=== PATIENT | male | born 1955 | race Caucasian/White ===

== ENCOUNTER 2017-07-22 01:21 | Emergency (ER) | payer SELFPAY ==
[2017-07-22] MEDS ORDERED: Lidocaine 1% 20 ML MDV ONE (01:28)
[2017-07-22 02:03] LABS: INR-International Normal Ratio 1.1; PTT 24.5 SEC (22.9-36.1); Prothrombin Time 13.8 SEC (12.0-14.7)
[2017-07-22 02:05] LABS: #Basophils 0.2 thou/uL (0.0-0.2); #Eosinphils 0.3 thou/uL (0.0-0.7); #Lymphocytes 2.9 thou/uL (1.20-3.40); #Monocytes 0.6 thou/uL (0.11-0.59); #Neutrophils 8.4 thou/uL (1.40-6.50); %Basophils 1.5 % (0.0-1.0); %Eosinophils 2.5 % (0.0-10.0); %Lymphocytes 23.7 % (21.0-51.0); %Monocytes 4.5 % (0.0-10.0); %Neutrophils 67.8 % (42.0-75.0); Hemoglobin 14.1 g/dL (14.0-18.0); MDiff Complete? YES; Mean Corpuscular HGB CONC 33.3 g/dL (32.0-36.0); Mean Corpuscular Hemoglobin 35.6 pg (27.0-31.0); Mean Platelet Volume 6.8 fL (7.4-10.4); Platelet Count 249 thou/uL (130-400); RBC Distribution Width 11.7 % (11.5-14.5); Red Blood Cell (RBC) Count 3.95 mill/uL (4.70-6.10); White Blood Cell (WBC) Count 12.3 thou/uL (4.8-10.8)
[2017-07-22 02:06] LABS: Macrocytosis SLIGHT = 6-15 cells (100X) (0-5/hpf); PLT Morphology Comment Appears Adequate; RBC Morphology ABNORMAL; Target Cells SLIGHT = 2-5 cells (100X) (0-1/hpf)
[2017-07-22 02:09] LABS: ALT (SGPT) 27 U/L (8-55); AST (SGOT) 38 U/L (5-34); Albumin 4.1 g/dL (3.4-4.8); Alcohol 282 mg/dL (Less than 10); Alkaline Phosphatase 63 U/L (40-150); Anion Gap 17 mmol/L (10-20); Bilirubin, Total Less than 0.3 mg/dL (0.2-1.2); Calc. Creatinine Clearance 0 mL/min (70-130); Carbon Dioxide 26 mmol/L (23-31); Chloride 109 mmol/L (98-107); Estimated GFR-MDRD 80; Globulin 2.8 g/dL (2.4-3.5); Glucose 90 mg/dL (80-115); Potassium 4.7 mmol/L (3.5-5.1); Protein, Total 6.9 g/dL (5.8-8.1); Sodium 147 mmol/L (136-145)
[2017-07-22 02:10] LABS: Calcium 8.4 mg/dL (7.8-10.44)
[2017-07-22 02:11] LABS: BUN (Urea Nitrogen) 11 mg/dL (8.4-25.7)
[2017-07-22] MEDS ORDERED: Ibuprofen 100 MG/5 ML UDCUP ONE (02:47)
[2017-07-22] MEDS ORDERED: Lorazepam 2 MG/ML VIAL ONE (02:49)
[2017-07-22] MEDS ORDERED: Adacel (T-DAP) 0.5 ML VIAL ONE (05:31)
[2017-07-22] MEDS ORDERED: Acetaminophen 325 MG TAB ONE (06:04)
[2017-07-22] MEDS ORDERED: Dextrose 5 % And 0.9 % NaCl 1000 ml Bag ONE (07:15)
[2017-07-22] MEDS ORDERED: Sodium Chloride Irrig Solution 250 ML BOT ONE (07:15)
--- NOTE | 2017-07-22 08:20 | CT ---
PRELIMINARY REPORT/[facility]/EMERGENCY AFTER HOURS PROCEDURE: EXAM: CT Head Without Intravenous Contrast CLINICAL HISTORY: 62 years old, male; Injury or trauma; Injury Pt passed out. Lac to lt eyebrow; Initial encounter; Co ncussion / head injury; Consciousness not specified; Injury date: 07-21-17; Patient HX: Pt passed ou t lac. To lt eyebrow TECHNIQUE: Axial computed tomography images of the head/brain without intravenous contrast. All CT scans at [facility] facility use one or more dose reduction techniques, viz.: automated exposure control; ma/kV adjust ment per patient size (including targeted exams where dose is matched to indication; i.e. head); or iterative reconstruction technique. COMPARISON: No relevant prior studies available. FINDINGS: No definite acute skull fracture. Moderate ethmoid sinus opacity/fluid. Mild mucosal thickening in maxillary sinuses. Included paranasal sinuses otherwise appear essentially clear. No acute intracranial hemorrhage or mass effect. Ventricle size is normal for age. No definite acute infarct by CT. IMPRESSION: No acute intracranial hemorrhage or mass effect. Paranasal sinus findings as discussed above. Thank you for allowing us to participate in the care of your patient. Dictated and Authenticated by: Rashaun Velez MD 07/22/2017 2:34 AM Central Time ([place] \T\ [place]) FINAL REPORT EMERGENT AFTER HOURS CT OF BRAIN WITHOUT CONTRAST: FINDINGS/IMPRESSION: I agree with the findings and impression given in the preliminary report per [facility] physician. No ev idence of acute intracranial abnormality. POS: [facility]
== END 2017-07-22 06:19 | disposition home or self-care (01) ==
LOC: MADERS 01:21
DX: S01.112A Laceration without foreign body of left eyelid and periocular area, initial encounter (principal); S01.81XA Laceration without foreign body of other part of head, initial encounter; F10.129 Alcohol abuse with intoxication, unspecified; J44.9 Chronic obstructive pulmonary disease, unspecified; F17.210 Nicotine dependence, cigarettes, uncomplicated; W19.XXXA Unspecified fall, initial encounter; Y90.8 Blood alcohol level of 240 mg/100 ml or more
CPT/HCPCS: 12013; 36415; 70450; 80053; 80307; 85025; 85610; 85730; 90471; 90715; 93005; 96361; 96374; J2001; J2060; J7042

== ENCOUNTER 2017-07-27 12:04 | Emergency (ER) | payer SELFPAY | END 2017-07-27 12:48 | disposition home or self-care (01) | LOC: MADERS 12:04 | DX: S01.81XD Laceration without foreign body of other part of head, subsequent encounter (principal); J44.9 Chronic obstructive pulmonary disease, unspecified; F17.210 Nicotine dependence, cigarettes, uncomplicated; Z87.442 Personal history of urinary calculi; W19.XXXD Unspecified fall, subsequent encounter ==

== ENCOUNTER 2017-08-09 09:20 | Emergency (ER) | payer SELFPAY ==
[~2017-08-09 09:20] MED LIST: Sodium Chloride 0.9% 1,000 ML BAG ONE; Sodium Chloride 0.9% 100 ML BAG ONE
--- NOTE | 2017-08-09 10:24 | RAD ---
FRONTAL RADIOGRAPH CHEST: 08/09/2017 HISTORY: Alcohol withdrawal. COMPARISON: None. FINDINGS: There are increased linear interstitial densities with pulmonary hyperinflation. Question a history of COPD. No pneumothorax, pleural effusion, lobar consolidation, or alveolar edema. IMPRESSION: Diffuse interstitial prominence with pulmonary hyperinflation, as detailed above. POS: [facility]
[2017-08-09 10:37] LABS: Bilirubin Negative (Negative); Blood, Urine Trace (Negative); Glucose, Urine (Dipstick) Negative (Negative); Leukocyte Negative (Negative); Nitrite Negative (Negative); Protein, Urine (Dipstick) 30 mg/dL (Neg-Trace); Specific Gravity, Urine 1.015 (1.005-1.030)
[2017-08-09 10:38] LABS: Clarity Hazy (Clear)
[2017-08-09 10:39] LABS: Bacteria/HPF Rare-Few HPF (None Seen); RBC/HPF 0-3 HPF (0-3); Squamous Epithelial 0-3 HPF (0-3); WBC/HPF 0-3 HPF (0-3)
[2017-08-09 10:47] LABS: ALT (SGPT) 97 U/L (8-55); Albumin 4.5 g/dL (3.4-4.8); Alkaline Phosphatase 72 U/L (40-150); Anion Gap 22 mmol/L (10-20); BUN (Urea Nitrogen) 14 mg/dL (8.4-25.7); Bilirubin, Total 1.6 mg/dL (0.2-1.2); CK (CPK) 302 U/L (30-200); Calc. Creatinine Clearance 0 mL/min (70-130); Calcium 10.1 mg/dL (7.8-10.44); Carbon Dioxide 19 mmol/L (23-31); Chloride 99 mmol/L (98-107); Estimated GFR-MDRD Greater than 90; Globulin 3.2 g/dL (2.4-3.5); Glucose 119 mg/dL (80-115); Lipase 44 U/L (8-78); Potassium 4.5 mmol/L (3.5-5.1); Protein, Total 7.7 g/dL (5.8-8.1); Sodium 135 mmol/L (136-145)
[2017-08-09 10:51] LABS: AST (SGOT) 109 U/L (5-34)
[2017-08-09] MEDS ORDERED: Lorazepam 2 MG/ML VIAL ONE (10:52)
[2017-08-09] MEDS ORDERED: Thiamine HCl 200 MG/2 ML VIAL ONE (11:10)
[2017-08-09] MEDS ORDERED: Ketorolac Tromethamine 30 MG/ML VIAL ONE (11:18)
[2017-08-09] MEDS ORDERED: Ondansetron HCl/PF 4 MG/2 ML Vial ONE (11:18)
== END 2017-08-09 12:30 | disposition home or self-care (01) ==
LOC: MADERS 09:20
DX: F10.239 Alcohol dependence with withdrawal, unspecified (principal); J44.9 Chronic obstructive pulmonary disease, unspecified; F17.210 Nicotine dependence, cigarettes, uncomplicated
CPT/HCPCS: 71010; 80053; 81001; 82150; 82550; 83690; 87086; 96361; 96374; 96375; J1885; J2060; J2405; J3411; J7050

== ENCOUNTER 2017-09-07 17:17 | Emergency (ER) | payer SELFPAY ==
[~2017-09-07 17:17] MED LIST changes: +Dextrose 5 %-0.45 % NaCl 1000 ml Bag ONE; -Sodium Chloride 0.9% 100 ML BAG ONE
[2017-09-07] MEDS ORDERED: Multivit, Adult Inj 10 ML VIAL ONE (17:44)
[2017-09-07] MEDS ORDERED: Thiamine HCl 200 MG/2 ML VIAL ONE (17:44)
[2017-09-07] MEDS ORDERED: Fentanyl 100 MCG/2 ML VIAL ONE (17:44)
[2017-09-07] MEDS ORDERED: Lorazepam 2 MG/ML VIAL ONE ×3 (17:50→21:34)
[2017-09-07 18:10] LABS: Hemoglobin 15.6 g/dL (14.0-18.0); Lymphocytes 39 % (21-51); MDiff Complete? YES; Mean Corpuscular HGB CONC 34.6 g/dL (32.0-36.0); Mean Corpuscular Hemoglobin 35.7 pg (27.0-31.0); Mean Corpuscular Volume 103.2 fl (80.0-94.0); Mean Platelet Volume 7.9 fL (7.4-10.4); Monocytes 9 % (0-10); Neutrophil 52 % (42-75); PLT Morphology Comment Appears Decreased; Platelet Count 90 thou/uL (130-400); RBC Distribution Width 11.5 % (11.5-14.5); Red Blood Cell (RBC) Count 4.38 mill/uL (4.70-6.10); White Blood Cell (WBC) Count 6.1 thou/uL (4.8-10.8)
[2017-09-07 18:13] LABS: ALT (SGPT) 112 U/L (8-55); AST (SGOT) 155 U/L (5-34); Acetaminophen Less than 6.0 mcg/mL (10.0-30.0); Albumin 4.8 g/dL (3.4-4.8); Alcohol 387 mg/dL (Less than 10); Alcohol 390 mg/dL (Less than 10); Alkaline Phosphatase 104 U/L (40-150); Anion Gap 25 mmol/L (10-20); BUN (Urea Nitrogen) 15 mg/dL (8.4-25.7); Bilirubin, Total 0.7 mg/dL (0.2-1.2); Calc. Creatinine Clearance 0 mL/min (70-130); Calcium 9.1 mg/dL (7.8-10.44); Carbon Dioxide 20 mmol/L (23-31); Chloride 100 mmol/L (98-107); Estimated GFR-MDRD 82; Globulin 3.5 g/dL (2.4-3.5); Glucose 107 mg/dL (80-115); Potassium 4.2 mmol/L (3.5-5.1); Protein, Total 8.3 g/dL (5.8-8.1); Salicylate Less than 8.0 mg/dL (15.0-30.0); Sodium 141 mmol/L (136-145)
[2017-09-07 18:57] LABS: Bilirubin Negative (Negative); Blood, Urine Small (Negative); Glucose, Urine (Dipstick) Negative (Negative); Leukocyte Negative (Negative); Nitrite Negative (Negative); Protein, Urine (Dipstick) 100 mg/dL (Neg-Trace)
[2017-09-07 19:02] LABS: Clarity Hazy (Clear)
[2017-09-07 19:03] LABS: Amphetamine Not Detected (NotDetected); Bacteria/HPF Rare-Few HPF (None Seen); Barbiturates Screen Not Detected (NotDetected); Benzodiazepine Screen Detected (NotDetected); Cocaine Metabolite Screen Not Detected (NotDetected); Medtox Control Line Valid? VALID (VALID); Methadone Not Detected (NotDetected); Methamphetamine Not Detected (NotDetected); Opiate Screen Not Detected (NotDetected); Oxycodone Screen Not Detected (NotDetected); Phencyclidine (PCP) Not Detected (NotDetected); Squamous Epithelial 0-3 HPF (0-3); THC/Cannabinoid Screen Detected (NotDetected); Tricyclic Screen Not Detected (NotDetected); WBC/HPF 0-3 HPF (0-3)
[2017-09-07] MEDS ORDERED: Nicotine 21 MG PATCH TOP SCH (21:15)
== END 2017-09-07 23:12 | disposition short-term general hospital (02) ==
LOC: MADERS 17:17
DX: F10.239 Alcohol dependence with withdrawal, unspecified (principal); R45.851 Suicidal ideations; J44.9 Chronic obstructive pulmonary disease, unspecified; F17.210 Nicotine dependence, cigarettes, uncomplicated; Y90.8 Blood alcohol level of 240 mg/100 ml or more
CPT/HCPCS: 80053; 80306; 80307; 81003; 81015; 83735; 84443; 85025; 96361; 96374; 96375; 96376; J2060; J3010; J3411; J7042; J7050

== ENCOUNTER 2018-03-11 06:41 | Emergency (ER) | payer SELFPAY ==
[2018-03-11] MEDS ORDERED: Lorazepam 2 MG/ML VIAL ONE ×2 (07:37→08:36)
[2018-03-11] MEDS ORDERED: Thiamine HCl 200 MG/2 ML VIAL ONE (07:37)
[2018-03-11 07:50] LABS: Hemoglobin 12.6 g/dL (14.0-18.0); Mean Corpuscular Hemoglobin 33.4 pg (27.0-31.0); Mean Corpuscular Volume 95.5 fl (80.0-94.0); Mean Platelet Volume 9.8 fL (7.4-10.4); Platelet Count 65 thou/uL (130-400); RBC Distribution Width 12.8 % (11.5-14.5); Red Blood Cell (RBC) Count 3.78 mill/uL (4.70-6.10)
--- NOTE | 2018-03-11 07:57 | RAD ---
PORTABLE CHEST 1 VIEW: DATE: 03/11/18. TIME: 7:17 a.m. HISTORY: Fall, right-sided chest pain. FINDINGS: Comparison is made with the exam of 09/08/17. The heart size is normal. The aorta is tortuous. The lungs are expanded with a small right apical p neumothorax. There is a small right-sided pneumothorax. Report was called over the telephone to the patient's nurse in the emergency room, Juan Goodman, at 7:45 a.m. POS: [facility]
[2018-03-11] MEDS ORDERED: Lidocaine 2% w/Epinephrine 1:200K 20 ML VIAL ONE (07:58)
[2018-03-11] MEDS ORDERED: Fentanyl 100 MCG/2 ML VIAL ONE (07:58)
[2018-03-11 07:59] LABS: ALT (SGPT) 184 U/L (8-55); AST (SGOT) 190 U/L (5-34); Acetaminophen Less than 6.0 mcg/mL (10.0-30.0); Albumin 4.3 g/dL (3.4-4.8); Alcohol Less than 10 mg/dL (Less than 10); Alkaline Phosphatase 93 U/L (40-150); Anion Gap 22 mmol/L (10-20); BUN (Urea Nitrogen) 23 mg/dL (8.4-25.7); Bilirubin, Total 0.8 mg/dL (0.2-1.2); Calc. Creatinine Clearance 0 mL/min (70-130); Calcium 9.8 mg/dL (7.8-10.44); Carbon Dioxide 21 mmol/L (23-31); Chloride 98 mmol/L (98-107); Estimated GFR-MDRD 64; Glucose 112 mg/dL (80-115); Magnesium 1.9 mg/dL (1.6-2.6); Potassium 3.5 mmol/L (3.5-5.1); Protein, Total 7.3 g/dL (5.8-8.1); Salicylate Less than 8.0 mg/dL (15.0-30.0); Sodium 137 mmol/L (136-145)
[2018-03-11 08:01] LABS: Band 1 % (5-11); Lymphocytes 28 % (21-51); MDiff Complete? YES; Manual Diff?? YES; Monocytes 5 % (0-10); Neutrophil 66 % (42-75)
[2018-03-11 08:02] LABS: Anisocytosis SLIGHT = 6-15 cells (100X) (0-5/hpf); PLT Morphology Comment Appears Decreased
[2018-03-11] MEDS ORDERED: Dextrose 5 %-0.45 % NaCl 1000 ml Bag ONE (08:17)
[2018-03-11] MEDS ORDERED: Sodium Chloride 0.9% 1,000 ML BAG ONE (08:17)
--- NOTE | 2018-03-11 08:55 | RAD ---
CHEST 1 VIEW: Date: 03/11/18 HISTORY: Right thoracostomy tube placement. COMPARISON: 03/11/18. FINDINGS: Cardiac silhouette magnified by projection. Pulmonary vasculature unremarkable. Mediastinum midline. Small caliber catheter now overlies the right upper lateral chest. Very small residual right apical p neumothorax. Left lung is well inflated. rn forensic leads overlie the chest. IMPRESSION: Right thoracostomy tube in good position with near complete evacuation right pneumothorax. POS: [facility]
== END 2018-03-11 09:11 | disposition short-term general hospital (02) ==
LOC: MADERS 06:41
DX: F10.239 Alcohol dependence with withdrawal, unspecified (principal); S27.0XXA Traumatic pneumothorax, initial encounter; J44.9 Chronic obstructive pulmonary disease, unspecified; Z87.442 Personal history of urinary calculi; F17.210 Nicotine dependence, cigarettes, uncomplicated; Y90.0 Blood alcohol level of less than 20 mg/100 ml; Z79.899 Other long term (current) drug therapy; W19.XXXA Unspecified fall, initial encounter
CPT/HCPCS: 71045; 80053; 80307; 83735; 84443; 85025; 96361; 96374; 96375; 96376; J2060; J3010; J3411; J7042; J7050